=== PATIENT | female | born 1945 | race Two or more races ===

== ENCOUNTER → 2023-04-19 | Day surgery (SDC) | payer OTHER ==
[2023-03-20 10:00] LABS: HEMATOCRIT 39.3 % (36.0-45.00); MEAN CELL VOLUME 88.6 fL (80.00-100.00); MEAN CORPUSCULAR HEMOGLOBIN 29.2 pg (27.00-32.0); PLATELET COUNT 212 K/uL (150-450); RED BLOOD COUNT 4.44 M/uL (4.00-6.00)
[2023-03-20 10:31] LABS: ALBUMIN 3.9 gm/dL (3.4-5.0); BILIRUBIN TOTAL 0.51 mg/dL (0.3-1.2); CALCIUM 9.5 mg/dL (8.5-10.1); CREATININE SERUM 0.8 mg/dL (0.55-1.02); GFR 69.74; POTASSIUM 4.69 mEq/L (3.5-5.1); TOTAL PROTEIN 7.9 gm/dL (6.4-8.2)
[2023-03-20 10:39] LABS: INR 0.99; PROTHROMBIN TIME 10.4 SECONDS (9.0-11.5)
[2023-03-20 10:42] LABS: PH,URINE 5.5 (5.0-8.0); URINE APPEARANCE Clear; URINE BILIRRUBIN Negative (NEGATIVE); URINE BLOOD Negative; URINE COLOR Yellow; URINE GLUCOSE Negative (NEGATIVE); URINE LEUKOCYTE Negative; URINE NITRATE Negative; URINE PROTEIN Negative (NEGATIVE); URINE UROBILINOGEN 0.2 E.U./dl
[2023-03-20 10:49] LABS: URINE BACTERIA 17.6 uL (0.0-1933); URINE WBC 3.2 uL (0.0-23.2)
[2023-03-20 10:52] LABS: URINE RBC 1.2 uL (0.0-20.8)
[~2023-04-19] MED LIST: OXYC1TAB9 PO; SYNTHROID100 MCG PO
== END | disposition home or self-care (01) ==
LOC: ADM 03-20 08:45 → CIR.AMB 05:12
PROVIDERS: ATTEND Surgery
DX: K64.2 Third degree hemorrhoids (principal); K64.8 Other hemorrhoids; K64.4 Residual hemorrhoidal skin tags; Z91.030 Bee allergy status; Z91.010 Allergy to peanuts; Z20.822 Contact with and (suspected) exposure to COVID-19